=== PATIENT | female | born 1960 ===

== ENCOUNTER 2017-12-28 14:30 | Emergency (ER) | payer OTHER ==
[2017-12-28 14:30] VITALS: BMI 30.2
[2017-12-28 14:53] VITALS: BP 127/84; PULSE 81; RESP 18; TEMP 98.1; O2SAT 100
--- NOTE | 2017-12-28 15:32 | ED PDOC ---
Upper Extremity Pain/Injury Time Seen by Provider: 12/28/17 14:39 Chief Complaint (Nursing): Abnormal Skin Integrity Chief Complaint (Provider): Left Upper Extremity Pain History Per: Patient History/Exam Limitations: no limitations Onset/Duration Of Symptoms: Mins (prior to arrival) Current Symptoms Are (Timing): Still Present Additional Complaint(s): 57 year old female, who is a [employer] employee, presents to the ED for evaluation of left upper extremity pain. Patient reports that she slipped and fell on a wet floor, striking her left forearm against her cart, and now complains of bruising and pain to the area. She denies limitation in motion or any lacerations. Left hand dominant. PMD: none provided Past Medical History Reviewed: Historical Data, Nursing Documentation, Vital Signs Vital Signs: Last Vital Signs Temp 98.1 F 12/28/17 14:51 Pulse 81 12/28/17 14:51 Resp 18 12/28/17 14:51 BP 127/84 12/28/17 14:51 Pulse Ox 100 12/28/17 14:51 - Medical History PMH: Asthma, Hypercholesterolemia, Hyperlipidemia (per old chart but pt denies) - Surgical History Other surgeries: Yes: right heel, left foot - Family History Family History: States: Unknown Family Hx - Social History Current smoker - smoking cessation education provided: No Alcohol: None Drugs: Denies - Immunization History Hx Tetanus Toxoid Vaccination: Yes (2013) - Home Medications Home Medications: Ambulatory Orders Medication Instructions Recorded Cyclobenzaprine [Cyclobenzaprine 10 mg PO TID PRN #20 tab 04/16/16 HCl] Naproxen [Naprosyn] 500 mg PO BID #20 tab 04/16/16 Ibuprofen [Motrin] 600 mg PO Q6 #20 tab 12/28/17 - Allergies Allergies/Adverse Reactions: Allergies Allergy/AdvReac Type Severity Reaction Status Date / Time Penicillins Allergy unknown Verified 10/27/15 16:51 Review of Systems ROS Statement: Except As Marked, All Systems Reviewed And Found Negative Musculoskeletal: Positive for: Other (left forearm pain and bruising; no limitation in motion or laceration) Physical Exam - Reviewed Nursing Documentation Reviewed: Yes Vital Signs Reviewed: Yes - Physical Exam Appears: Positive for: No Acute Distress Head Exam: Positive for: ATRAUMATIC, NORMOCEPHALIC Skin: Positive for: Warm, Dry Eye Exam: Positive for: Normal appearance Neck: Positive for: Normal, Painless ROM, Supple Cardiovascular/Chest: Positive for: Regular Rate, Rhythm Respiratory: Positive for: Normal Breath Sounds. Negative for: Accessory Muscle Use, Respiratory Distress Pulses-Radial (L): 2+ Extremity: Positive for: Normal ROM (of left elbow and wrist), Other ( ecchymosis and mild superficial abrasion to mid left forearm) Neurologic/Psych: Positive for: Alert, Oriented (x3). Negative for: Motor/ Sensory Deficits - ECG O2 Sat by Pulse Oximetry: 100 (RA) Pulse Ox Interpretation: Normal Medical Decision Making Medical Decision Making: Time: 1535 Initial Impression: abrasion / contusion Initial Plan: --XR left forearm --Motrin 600 mg PO 1603 XR forearm FINDINGS: BONES: No fracture or destructive lesion. JOINT SPACES: Unremarkable. OTHER FINDINGS: None. IMPRESSION: No fracture or destructive lesion seen Scribe Attestation: Documented by Juliette Bowling, acting as a scribe for Petty Cole PA-C. Provider Scribe Attestation: All medical record entries made by the Scribe were at my direction and personally dictated by me. I have reviewed the chart and agree that the record accurately reflects my personal performance of the history, physical exam, medical decision making, and the department course for this patient. I have also personally directed, reviewed, and agree with the discharge instructions and disposition. Disposition - Clinical Impression Clinical Impression: Forearm contusion - Patient ED Disposition Is Patient to be Admitted: No - Disposition Referrals: Jamel Zacarias MD [Primary Care Provider] - Disposition: Routine/Home Disposition Time: 17:05 Condition: STABLE Additional Instructions: Follow up with Employee Health Prescriptions: Ibuprofen [Motrin] 600 mg PO Q6 #20 tab Instructions: Contusion (DC) Forms: [employer] ([place])
--- NOTE | 2017-12-28 16:38 | RAD ---
Date of service: 12/28/2017 PROCEDURE: Radiographs of the Left Forearm HISTORY: pain s/p fall COMPARISON: None available. TECHNIQUE: Frontal and lateral views obtained. FINDINGS: BONES: No fracture or destructive lesion. JOINT SPACES: Unremarkable. OTHER FINDINGS: None. IMPRESSION: No fracture or destructive lesion seen.
== END 2017-12-28 16:47 | disposition home or self-care (01) ==
LOC: H.ER 14:30
DX: S50.12XA Contusion of left forearm, initial encounter (principal); W01.198A Fall on same level from slipping, tripping and stumbling with subsequent striking against other object, initial encounter; Y92.239 Unspecified place in hospital as the place of occurrence of the external cause; Y99.0 Civilian activity done for income or pay